=== PATIENT | female | born 1965 | race Two or more races ===

== ENCOUNTER 2023-05-29 18:48 | Emergency (ER) | payer OTHER ==
[~2023-05-29] VITALS: Ht 170.2 cm; Wt 88.0 kg
[2023-05-29] MEDS ORDERED: METFORMIN HCL500 MG (19:25)
[2023-05-29] MEDS ORDERED: GLUMETZA1000 MG (19:25)
[2023-05-29] MEDS ORDERED: GLIMEPIRIDE2 MG (19:25)
== END 2023-05-29 20:04 | disposition home or self-care (01) ==
LOC: ER 18:49
DX: R53.81 Other malaise (principal); E11.649 Type 2 diabetes mellitus with hypoglycemia without coma; Z79.84 Long term (current) use of oral hypoglycemic drugs

== ENCOUNTER 2023-07-19 00:13 | Emergency (ER) | payer OTHER ==
[~2023-07-19] VITALS: Ht 177.8 cm; Wt 81.6 kg
[~2023-07-19 00:13] MED LIST: GLIMEPIRIDE2 MG; GLUMETZA1000 MG; METFORMIN HCL500 MG
[2023-07-19] MEDS ORDERED: METFORMIN HCL500 M2 PO (04:51)
== END 2023-07-19 05:02 | disposition home or self-care (01) ==
LOC: ER 00:13
DX: E11.649 Type 2 diabetes mellitus with hypoglycemia without coma (principal); Z79.84 Long term (current) use of oral hypoglycemic drugs